=== PATIENT | female | born 1985 | race Caucasian/White ===

== ENCOUNTER 2017-11-26 03:47 | Inpatient (IN) | payer OTHER ==
[2017-11-26 04:33] VITALS: BMI 24.4
--- NOTE | 2017-11-26 04:39 | OBADHP ---
Datetime: 11/26/2017 04:33 Admit Comment, IP Provider: Patient is a @ 39.1 wks presenting with painful contractions and some spotting. Patient denies LOF, +FM. Antepartum patient has a history of IUGR, induction was sche [facility] for tomorrow. No other medical problems, surgical problems, no allergies, taking no medication VE= /-2 [id number] mod nupur, no accels, no decels TOCO = jose q 5 mins A/P 1. Patient in early labor and uncomofortable. Admit patient to labor and delivery, start IVF, CBC, type and screen 2. CEFM and TOCO 3. Epidural for pain 4. Re-evaluate as needed Pelvic Type - PN: Adequate Extremities - PN: Normal Abdomen - PN: Normal Back - PN: Normal Breast - PN: Normal Lungs - PN: Normal Heart - PN: Normal Thyroid - PN: Normal Neurologic - PN: Normal HEENT - PN: Normal General - PN: Normal FHR - Baseline A Provider: 140 Contraction Comments Provider: q 5 mins Vital Signs Provider: Reviewed; Within Normal Limits NICHD Variability Prov Fetus A: Moderate 6-25bpm NICHD Decel Fetus A IP Provider: None Dilatation, Provider: 4 Effacement, Provider: 50 Station, Provider: -2 Genitourinary Exam: Normal DTRs - PN: Normal IP Adm Impression: Term, intrauterine IP Admit Plan: Admit to unit; Initiate labor protocol
[2017-11-26] MEDS: Lactated Ringer's 1,000 ML IV ONE ×3 (05:15→07:40)
[2017-11-26 05:26] VITALS: RESP 18
[2017-11-26 05:38] LABS: BASO # 0.1 K/uL (0.0-0.2); BASO % 0.6 % (0.0-2.0); EOS # 0.1 K/uL (0.0-0.7); EOS % 0.7 % (0.0-4.0); HEMOGLOBIN 12.6 g/dL (12.0-16.0); LYMPH # 2.4 K/uL (1.0-4.3); LYMPH % 22.3 % (20.0-40.0); MEAN CELL VOLUME 85.2 fl (81.0-99.0); MEAN CORPUSCULAR HEMOGLOBIN 29.5 pg (27.0-31.0); MEAN CORPUSCULAR HGB CONC 34.6 g/dL (33.0-37.0); MEAN PLATELET VOLUME 10.9 fl (7.2-11.7); MONO # 0.7 K/uL (0.0-0.8); MONO % 6.7 % (0.0-10.0); NEUT # 7.5 K/uL (1.8-7.0); NEUT % 69.7 % (50.0-75.0); RBC 4.26 Mil/uL (3.80-5.20); RED CELL DISTRIBUTION WIDTH 13.5 % (11.5-14.5); WHITE BLOOD COUNT 10.8 K/uL (4.8-10.8)
[2017-11-26] MEDS: Lactated Ringer's 1,000 ML IV SCH ×2 (06:38→09:00)
[2017-11-26] MEDS ORDERED: Oxytocin 30 units/LR 500ML 30 U/500 ML BAG IV ONE (07:10)
[2017-11-26] MEDS ORDERED: Fentanyl/Bupivacaine HCl 250 ML EPI ONE (07:41)
[2017-11-26] MEDS ORDERED: Lactated Ringer's 500 ML IV SCH (09:00)
--- NOTE | 2017-11-26 09:58 | OBPN ---
Datetime: 11/26/2017 09:49 IP Progress Impression Other: Growth restriction IP Procedures: Sterile Speculum Exam IP Progress Plan: Cervical Ripening Membranes, Provider: Intact Contraction Comments Provider: irregular FHR - Baseline A Provider: 130's IP Progress Note Comment: 32 yo at 39+1 wks w/ IUGR, s/p epidural for early labor Will start misoprostol for cervical ripening GBS negative, FHT reassuring NICHD Accel Fetus A IP Provider: [id number] FHR Category Provider Fetus A: Category I NICHD Variability Prov Fetus A: Moderate 6-25bpm Dilatation, Provider: 2 Effacement, Provider: 30 Station, Provider: -3 NICHD Decel Fetus A IP Provider: None Datetime: 11/26/2017 04:33 Vital Signs Provider: Reviewed; Within Normal Limits
[2017-11-26] MEDS ORDERED: Lidocaine 1% Inj (20ml) ONE (14:31)
[2017-11-26] MEDS ORDERED: Benzocaine/Menthol SPRAY TOP PRN (16:29)
[2017-11-26] MEDS ORDERED: Oxycodone/Acetaminophen 5/325 mg Tab PO PRN (16:29)
--- NOTE | 2017-11-26 16:39 | OBDS ---
MATERNAL INFORMATION Provider Comments: Pt progressed to complete and pushed to deliver a viable female infant through li ght meconium-stained fluid at 16:09. Apgars 8 and 9. Wt 6#6.6, 2910 gms. Infant placed on mother's abdomen. Mouth and nares arnold-suctioned. Cord for blood gas collected. Baby was floppy and didn't have a lusty cry. Cord blood collected. Placenta delivered spontaneously intact w/ a 3vc at 16:15. Small second degree tear reapired w/ 2-0 rapide and 3-0 v. Pt and baby tolerated the procedure well . Rectum intact. EBL 150mL LABOR SUMMARY EDC: 12/02/2017 00:00 No. Babies in Womb: 1 LABOR INFORMATION Cervical Ripening Agents: Cytotec @ [facility] Membranes Rupture Method: Artificial Rupture of Membranes: 11/26/2017 14:55 Amniotic Fluid Color: Light Meconium Amniotic Fluid Amount: Moderate Amniotic Fluid Odor: Normal
--- NOTE | 2017-11-26 17:21 | OBDS ---
DELIVERY PERSONNEL Nurse Lining Finisher Certified: manju Delivery Doctor: Brina Davis MD Inspector Hairspring: Ai Benavides RN Anesthesiologist: Amina Cespedes MD Transit Manager: manju Resident: MATERNAL INFORMATION Delivery Anesthesia: Spinal Medications in Delivery: Pitocin 30 units in 500 cc LR Estimated Blood Loss (ml): 150 Placenta Cultured: Yes RN Comments: tolerated well by pt.No acute distress noted.Delivery attended by and Dr Robert(resident). Provider Comments: Pt progressed to complete and pushed to deliver a viable female infant through li ght meconium-stained fluid at 16:03. Apgars 8 and 9. Wt 6#6.6, 2910 gms. Infant placed on mother's abdomen. Mouth and nares arnold-suctioned. Cord for blood gas collected. Baby was floppy and didn't have a lusty cry. Cord blood collected. Placenta delivered spontaneously intact w/ a 3vc at 16:09. Small second degree tear reapired w/ 2-0 rapide and 3-0 v. Pt and baby tolerated the procedure well . Rectum intact. EBL 150mL LABOR SUMMARY EDC: 12/02/2017 00:00 No. Babies in Womb: 1 Attempted: No Attempted: No Labor Anesthesia: Epidural Labor Anesthesia: Epidural LABOR INFORMATION Onset of Labor: 11/26/2017 07:00 Complete Dilatation: 11/26/2017 15:40 Cervical Ripening Agents: Cytotec @ Oxytocin: N/A Group B Beta Strep: Negative Steroids Given: None [facility] Membranes Rupture Method: Artificial Membranes Rupture Method: Artificial Rupture of Membranes: 11/26/2017 14:55 Rupture of Membranes: 11/26/2017 14:55 Length of Rupture (hrs): 1.13 Length of Rupture (hrs): 1.13 Amniotic Fluid Color: Light Meconium Amniotic Fluid Color: Light Meconium Amniotic Fluid Amount: Moderate Amniotic Fluid Amount: Moderate Amniotic Fluid Odor: Normal Amniotic Fluid Odor: Normal STAGES OF LABOR Stage 1 hrs: 8 Stage 1 min: 40 Stage 2 hrs: 0 Stage 2 min: 23 Stage 3 hrs: 0 Stage 3 min: 6 Total Time in Labor hrs: 9 Total Time in Labor min: 9 VAGINAL DELIVERY Episiotomy: None Laceration Extension: Second Degree Laceration Type: Perineal; Vaginal Laceration Repair: Yes Initial Vag Sponge Count: 10 Final Vag Sponge Count: 10 Initial Vag Sharps Count: 2 Final Vag Sharps Count: 2 Sponge Count Correct: Vaginal Sweep Performed Sharps Count Correct: Yes BABY A INFORMATION Delivery Date/Time: 11/26/2017 16:03 Method of Delivery: Vaginal Born in Route : No : N/A Forceps: N/A Vacuum Extraction: N/A Shoulder Dystocia : No SHOULDER DYSTOCIA BABY A Infant Delivery Date/Time: 11/26/2017 16:03 PRESENTATION/POSITION BABY A Presentation: Cephalic Breech Presentation: N/A PLACENTA INFORMATION BABY A Placenta Delivery Time : 11/26/2017 16:09 Placenta Method of Delivery: Spontaneous Placenta Status: Delivered SCORES BABY A Heart Rate 1 min: >100 bpm Resp Effort 1 min: Slow, Irregular Reflex Irritability 1 min: Cough or Sneeze or Pulls Away Muscle Tone 1 min: Some Flexion of Extremities Color 1 min: Completely [place] Resuscitation Effort 1 min: Tactile Stimulation; Oxygen SCORE 1 MIN: 8 Heart Rate 5 min: >100 bpm Resp Effort 5 min: Good Cry Reflex Irritability 5 min: Cough or Sneeze or Pulls Away Muscle Tone 5 min: Active Motion Color 5 min: Body [place], Extremities Blue SCORE 5 MIN: 9 Heart Rate 10 min: >100 bpm Resp Effort 10 min: Good Cry Reflex Irritability 10 min: Cough or Sneeze or Pulls Away Muscle Tone 10 min: Active Motion Color 10 min: Completely [place] SCORE 10 MIN: 10 INFORMATION BABY A Gestational Age at Delivery: 39+1 Outcome : Liveborn Infant Condition : Stable Sex: Female WEIGHT/LENGTH BABY A Birthweight (gms): 2910 Infant Weight (lb): 6 Weight (oz): 7 Length Inches: 19.00 Infant Length cms: 48.3 CORD INFORMATION BABY A No. Cord Vessels: 3 No. Cord Vessels: 3 Nuchal Cord : N/A Nuchal Cord : N/A Nuchal Cord Other: NO True Knot: NO Cord Blood Taken: Yes Suction: Mouth Suction: Mouth
[2017-11-27 07:22] LABS: BASO % 0.3 % (0.0-2.0); EOS # 0.1 K/uL (0.0-0.7); EOS % 0.8 % (0.0-4.0); HEMOGLOBIN 10.6 g/dL (12.0-16.0); LYMPH % 14.1 % (20.0-40.0); MEAN CELL VOLUME 86.1 fl (81.0-99.0); MEAN CORPUSCULAR HGB CONC 33.6 g/dL (33.0-37.0); MEAN PLATELET VOLUME 10.4 fl (7.2-11.7); MONO # 0.9 K/uL (0.0-0.8); MONO % 6.6 % (0.0-10.0); NEUT % 78.2 % (50.0-75.0); RBC 3.65 Mil/uL (3.80-5.20); RED CELL DISTRIBUTION WIDTH 13.8 % (11.5-14.5)
[2017-11-27] MEDS ORDERED: Benzocaine/Menthol SPRAY TOP PRN (07:40)
[2017-11-27] MEDS ORDERED: Oxycodone/Acetaminophen 5/325 mg Tab PO PRN (07:40)
[2017-11-27] MEDS: Multivitamin With Minerals Tab PO SCH (08:39)
[2017-11-27] MEDS ORDERED: Multivitamin With Minerals Tab PO SCH (09:00)
[2017-11-27] MEDS ORDERED: Prenatal Multivit/Folic Acid/Iron Tab PO SCH (09:00)
--- NOTE | 2017-11-27 11:05 | OBPPN ---
Datetime: 11/27/2017 10:50 PP Pain Prov: Within normal limits PP Nausea Prov: Denies PP Flatus Prov: Yes PP Breasts Prov: Normal PP Heart Prov: Normal PP Lungs Prov: Normal PP Abdomen/Uterus Prov: Normal PP Lochia Prov: Normal PP Vulva/Perineum Prov: Normal PP CVA Tenderness Prov: Normal PP Extremities Prov: Normal PP Impression Prov: Normal progression PP Plan Prov: Continue present management PP Progress Note Prov: Patient denies CP, no SOB, no N/V, tolerating PO diet, ambulating/voiding wel l, mild lochia, abdominal pain tolerable with meds A/P PPD #1 1. Continue orders 2. Encourage ambulation and IP PP Procedures: None Vital Signs Provider PP: Reviewed; Within Normal Limits
[2017-11-28] MEDS: Multivitamin With Minerals Tab PO SCH (08:51)
--- NOTE | 2017-11-28 16:42 | OBPPN ---
Datetime: 11/28/2017 16:33 PP Pain Prov: Within normal limits PP Nausea Prov: Denies PP Flatus Prov: Yes PP BM Prov: Yes PP Breasts Prov: Normal PP Heart Prov: Normal PP Lungs Prov: Normal PP Abdomen/Uterus Prov: Normal PP Vulva/Perineum Prov: Normal PP Extremities Prov: Normal PP Progress Prov: Normal PP Comments Phys Exam Prov: hgb 10.6 PP Impression Prov: Normal progression PP Plan Prov: Discharge PP Progress Note Prov: Late entry s: tolerating reg diet. +. c/o some pain on perineum. o: perineum: site of pain at suture- no erythema/induration; intact i: s/p doing well pain along perineum p: Discharge home Sitz bath and perineum care discussed with patient Follow-up in 4-6 weeks with ob IP PP Procedures: None Vital Signs Provider PP: Within Normal Limits
--- NOTE | 2017-11-28 16:45 | OBDCSUM ---
Datetime: 11/28/2017 12:52 Discharged to, Provider: Home Follow up at, Provider: [facility] Disch Instr Activity: May Shower Disch Instr Diet: Regular Discharge Instructions, Provider: Routine instructions given Discharge Diagnosis, Provider: Term Delivered Discharge Time: 11/28/2017 13:30 Follow up in weeks, Provider: 4-6 weeks Disch Referrals: None Discharge Instruct Comment, Prov: pp Disch Activity Restrictions: No lifting; No sexual activity; Nothing in vagina - [place], tampon s, douche Discharge Comment, Provider: p: Discharge home Sitz bath and perineum care discussed with patient Follow-up in 4-6 weeks with ob rx pnv _ motrin Contraception after Delivery: Undecided
[2017-11-28 21:06] VITALS: BP 110/69; PULSE 73; TEMP 97.7; O2SAT 99
== END 2017-11-28 14:30 | disposition home or self-care (01) | DRG 775 ==
LOC: H.EROB2 03:47 → H.L&D 04:32 → H.OB/GYN 19:49
PROVIDERS: ADMIT Obstetrics & Gynecology; ATTEND Obstetrics & Gynecology
PROC: 10E0XZZ Delivery of Products of Conception, External Approach (ICD-10-PCS; principal; 2017-11-26)
PROC: 0KQM0ZZ Repair Perineum Muscle, Open Approach (ICD-10-PCS; 2017-11-26)
PROC: 4A1HXCZ Monitoring of Products of Conception, Cardiac Rate, External Approach (ICD-10-PCS; 2017-11-26)
DX: O36.5930 Maternal care for other known or suspected poor fetal growth, third trimester, not applicable or unspecified (principal); Z37.0 Single live birth; O77.0 Labor and delivery complicated by meconium in amniotic fluid; O70.1 Second degree perineal laceration during delivery; Z3A.39 39 weeks gestation of pregnancy